=== PATIENT | female | born 1970 | race Caucasian/White ===

== ENCOUNTER 2022-06-21 13:25 | Outpatient (CLI) | payer BC, SELFPAY | END 2022-06-21 13:26 | disposition home or self-care (01) | PROVIDERS: PCP Emergency Medicine; Visit Provider Emergency Medicine | DX: R63.4 Abnormal weight loss (principal); E78.5 Hyperlipidemia, unspecified; Z13.1 Encounter for screening for diabetes mellitus | CPT/HCPCS: 80053; 84443 ==

== ENCOUNTER 2023-03-02 13:22 | Outpatient (CLI) | payer BC, SELFPAY | END 2023-03-02 13:23 | disposition home or self-care (01) | PROVIDERS: PCP Family Medicine; Visit Provider Family Medicine | DX: Z00.00 Encounter for general adult medical examination without abnormal findings (principal); E78.5 Hyperlipidemia, unspecified; R63.5 Abnormal weight gain; Z13.6 Encounter for screening for cardiovascular disorders; Z13.1 Encounter for screening for diabetes mellitus; Z11.59 Encounter for screening for other viral diseases | CPT/HCPCS: 80053; 80061; 86376; 86803 ==

== ENCOUNTER 2023-03-09 08:38 | Outpatient (CLI) | payer BC, SELFPAY | END 2023-03-09 08:39 | disposition home or self-care (01) | LOC: NFLDREF 03-13 12:08 | PROVIDERS: PCP Family Medicine; Referring Provider Family Medicine; Visit Provider Family Medicine | DX: R76.8 Other specified abnormal immunological findings in serum (principal); E78.2 Mixed hyperlipidemia | CPT/HCPCS: 80061; 84436; 84439; 84443; 84480 ==

== ENCOUNTER 2023-12-12 15:33 | Outpatient (CLI) | payer BC, SELFPAY ==
--- NOTE | 2023-12-12 15:45 | CRLHL7_ITS ---
For Patients: As a result of the Century Cures Act, medical imaging exams and procedure reports are released immediately into your electronic medical record. You may view this report before your referring provider. If you have questions, please contact your health care provider. INDICATION: menopausal COMPARISON: none TECHNIQUE: 2D villagran scale and color Doppler images were acquired of the pelvis using a transabdominal and transvaginal approach. FINDINGS: Multiple uterine fibroids are present measuring up to 4.2 cm. The uterus measures 8.5 x 4.4 x 5.9 cm. The endometrium measures 5.5 millimeters. The right ovary measures 2.7 x 1.6 x 1.8 cm in size and the left ovary measures 3.4 x 2.5 x 2.3 cm. The ovaries demonstrate normal arterial and venous blood flow on color Doppler analysis. There are no suspicious fluid collections within the cul-de-sac. IMPRESSION: Leiomyomatous uterus. Endometrial thickness 5.5 millimeters. Dictated by Paul Oshea MD @ 12/13/2023 4:22:44 PM (Electronically Signed)
== END 2023-12-12 15:34 | disposition home or self-care (01) ==
LOC: US 15:34
PROVIDERS: PCP Family Medicine; Visit Provider Family Medicine
DX: N95.1 Menopausal and female climacteric states (principal); D39.0 Neoplasm of uncertain behavior of uterus; N93.9 Abnormal uterine and vaginal bleeding, unspecified
CPT/HCPCS: 76830; 76856

== ENCOUNTER 2024-10-29 15:32 | Outpatient (CLI) | payer BC, SELFPAY | END 2024-10-29 15:33 | disposition home or self-care (01) | PROVIDERS: PCP Family Medicine; Visit Provider Family Medicine | DX: Z00.00 Encounter for general adult medical examination without abnormal findings (principal); E78.2 Mixed hyperlipidemia; R76.8 Other specified abnormal immunological findings in serum | CPT/HCPCS: 80053; 80061; 84439; 84443 ==